=== PATIENT | male | born 1955 | race Caucasian/White ===

== ENCOUNTER 2018-11-27 23:34 | Emergency (ER) | payer OTHER ==
[~2018-11-27] VITALS: Ht 193 cm; Wt 64.8 kg
[~2018-11-27 23:34] MED LIST: DOXY100T20 PO
[2018-11-27 23:38] VITALS: Ht 193 cm; Wt 64.8 kg
--- NOTE | 2018-11-28 01:06 | ERD ---
ER Documentation Chief Complaint Chief Complaint SOB X TODAY. HPI 63-year-old male presenting with 3 to 4 days of worsening cough. He does cough and have shortness of breath at baseline which has worsened. No associated chest pain. He has had some subjective fevers and chills. No nausea or vomiting. No other associated symptoms. ROS All systems reviewed and are negative except as per history of present illness. Medications Home Meds Active Scripts Doxycycline Hyclate* (Doxycycline Hyclate*) 100 Mg Tablet.dr, 100 MG PO BID for 10 Days, TAB Prov:TORI DOE MD 11/28/18 Allergies Allergies: Coded Allergies: No Known Allergy (Unverified , 11/27/18) PMhx/Soc Medical and Surgical Hx: pt denies Medical Hx History of Surgery: Yes (L inguinal hernia) Anesthesia Reaction: No Hx Neurological Disorder: No Hx Respiratory Disorders: No Hx Cardiac Disorders: No Hx Psychiatric Problems: No Hx Miscellaneous Medical Probl: No Hx Alcohol Use: No Hx Substance Use: No Hx Tobacco Use: Yes Smoking Status: Current every day smoker FmHx Family History: No diabetes Physical Exam Vitals Vital Signs Date Temp Pulse Resp B/P (MAP) Pulse Ox O2 O2 Flow FiO2 Time Delivery Rate 11/28/18 98.4 92 20 123/84 97 Room Air 01:24 (97) 11/27/18 98.8 102 22 135/85 97 Room Air 23:52 (102) 11/27/18 98.3 108 20 144/78 94 23:38 (100) Physical Exam Const: No acute distress Head: Atraumatic Eyes: Normal Conjunctiva ENT: Normal External Ears, Nose and Mouth. Neck: Full range of motion. No meningismus. Resp: Clear to auscultation bilaterally Cardio: Regular rate and rhythm, no murmurs Abd: Soft, non tender, non distended. Normal bowel sounds Skin: No petechiae or rashes Back: No midline or flank tenderness Ext: No cyanosis, or edema Neur: Awake and alert Psych: Normal Mood and Affect Results 24 hrs Current Medications Medications Dose Sig/Tori Start Time Status Last (Trade) Ordered Route PRN Stop Time Admin Dose Reason Admin Doxycycline 100 mg ONCE ONCE 11/28/18 DC 11/28/18 Hyclate PO 01:30 11/28/18 01:10 (Vibramycin) 01:30 Procedures/MDM EMERGENT LABS AND DIAGNOSTIC STUDIES: Radiology Results as interpreted by Radiology below were reviewed by Ankit Doe MD: Chest x-ray shows right-sided pneumonia Initial Nursing notes reviewed. Previous Medical Records requested via the Electronic Health Record. EMERGENCY DEPARTMENT COURSE / MEDICAL DECISION MAKING: Patient presents with pneumonia but is otherwise hemodynamically stable. At bedside, he was normoxic on room air. I do not suspect severe sepsis or septic shock at this time. X-ray does show pneumonia. Patient was treated with oral doxycycline here and will be discharged with a prescription for doxycycline. S trict return precautions discussed. Patient discharged in stable condition. Patient's blood pressure was elevated (>120/80) but appears stable without evidence of hypertensive emergency or urgency. The patient was counseled about the risks of hypertension and urged to pursue outpatient monitoring and therapy within a week with their primary care physician. Departure Diagnosis: Primary Impression: Pneumonia Pneumonia type: due to unspecified organism Laterality: right Lung location: middle lobe of lung Qualified Codes: J18.1 - Lobar pneumonia, unspecified organism Condition: Stable Patient Instructions: Pneumonia (Adult) Referrals: [facility] YOU HAVE RECEIVED A MEDICAL SCREENING EXAM AND THE RESULTS INDICATE THAT YOU DO NOT HAVE A CONDITION THAT REQUIRES URGENT TREATMENT IN THE EMERGENCY DEPARTMENT. FURTHER EVALUATION AND TREATMENT OF YOUR CONDITION CAN WAIT UNTIL YOU ARE SEEN IN YOUR DOCTORS OFFICE WITHIN THE NEXT 1-2 DAYS. IT IS YOUR RESPONSIBILITY TO MAKE AN APPOINTMENT FOR FOLOW-UP CARE. IF YOU HAVE A PRIMARY DOCTOR --you should call your primary doctor and schedule an appointment IF YOU DO NOT HAVE A PRIMARY DOCTOR YOU CAN CALL OUR PHYSICIAN REFERRAL HOTLINE AT IF YOU CAN NOT AFFORD TO SEE A PHYSICIAN YOU CAN CHOSE FROM THE FOLLOWING [facility] [address] [facility] [address] [facility] [address] [facility] [address] [facility] [address] [facility]. [facility] [address] Additional Instructions: Return to this facility if you are not improving as expected. TORI DOE MD Nov 28, 2018 01:06
[2018-11-28 01:24] VITALS: BP 123/84; PULSE 92; RESP 20
[2018-11-28] MEDS ORDERED: DOXYCYCLINE 100 MG TAB PO ONE (01:30)
== END 2018-11-28 01:24 | disposition home or self-care (01) ==
LOC: E/R 23:34
DX: J18.1 Lobar pneumonia, unspecified organism (principal); F17.210 Nicotine dependence, cigarettes, uncomplicated
CPT/HCPCS: 71045; Z7502; Z7610